=== PATIENT | female | born 1950 | race Caucasian/White ===

== ENCOUNTER 2019-04-25 21:11 | Inpatient (IN) ==
[2019-04-25] MEDS ORDERED: MORPHINE 4 MG/1 ML VIAL IM STA (21:44)
[2019-04-25] MEDS ORDERED: ORPHENADRINE 60 MG/2 ML VIAL IV STA (21:44)
[2019-04-25 23:05] LABS: Basophils # 0.1 10*3/uL (0.0-0.2); Basophils % 0.4 % (0.0-0.8); Eosinophils % 0.3 % (0.00-10.9); Hematocrit 37.9 VOL% (35.7-47.0); Immature Granulocytes % 0.6 %; Immature Granulocytes Absolute 0.08 #; Lymphocytes % 16.1 % (21.3-54.2); Mean Corpuscular HGB Conc 34.3 GM/DL (32-36); Mean Corpuscular Volume 97.2 FL (87-102); Monocytes % 4.3 % (1.7-12.7); Neutrophils % 78.3 % (38.7-73.9); Platelet Count 206 T/CUMM (130-400); Red Cell Distribution Width 12.6 % (9.3-17.3); White Blood Count 12.5 T/CUMM (4-12)
[2019-04-25 23:16] LABS: INR 0.9; Partial Thromboplastin Time 26.9 SECS (20.8-36.0)
[2019-04-25 23:25] LABS: Albumin 3.3 G/DL (3.4-5.0); Bilirubin,Total 0.4 MG/DL (0.2-1.0); Calcium 8.2 MG/DL (8.5-10.1); Osmolality,Calculated 270.1 MOS/KG (273-304); Total Protein 6.5 G/DL (6.4-8.3)
[2019-04-25] MEDS ORDERED: KETOROLAC 30 MG/1 ML VIAL IM STA (23:34)
[2019-04-26] MEDS ORDERED: HYDROmorphone 2 MG/1 ML VIAL IV PRN ×3 (03:48→10:29)
[2019-04-26] MEDS ORDERED: ACETAMINOPHEN 325 MG TABLET PO PRN (03:48)
[2019-04-26] MEDS ORDERED: NICOTINE 21 MG/24 HR PATCH TRANSDERM PRN (03:48)
[2019-04-26] MEDS: ONDANSETRON 4 MG/2 ML VIAL IV PRN (04:09)
[2019-04-26] MEDS: SODIUM CHLORIDE 0.9% 1,000 ML IV SCH ×2 (04:10→10:36)
[2019-04-26 05:08] LABS: Basophils % 0.3 % (0.0-0.8); Eosinophils % 0.2 % (0.00-10.9); Hematocrit 39.1 VOL% (35.7-47.0); Hemoglobin 13.3 GM/DL (12.0-16.0); Immature Granulocytes % 0.5 %; Immature Granulocytes Absolute 0.06 #; Lymphocytes # 1.4 10*3/uL (1.4-4.0); Lymphocytes % 11.4 % (21.3-54.2); Mean Corpuscular Volume 97.3 FL (87-102); Mean Platelet Volume 11.4 FL (9.6-12.0); Monocytes % 6.1 % (1.7-12.7); Neutrophils % 81.5 % (38.7-73.9); Platelet Count 208 T/CUMM (130-400); Red Blood Count 4.02 MC/CUMM (3.8-5.5); Red Cell Distribution Width 12.5 % (9.3-17.3); White Blood Count 12.2 T/CUMM (4-12)
[2019-04-26 05:48] LABS: Calcium 8.7 MG/DL (8.5-10.1); Osmolality,Calculated 272.1 MOS/KG (273-304)
[2019-04-26] MEDS: ENOXAPARIN 40 MG/0.4 ML SYRINGE SUBCUT SCH (07:51)
[2019-04-26] MEDS ORDERED: ceFAZolin 1,000 MG in SYRINGE 1 EACH IV ONE (08:30)
[2019-04-26] MEDS ORDERED: ALBUTEROL/IPRATROPIUM 3 ML NEB RESP TX ONE ×2 (10:07→10:17)
[2019-04-26] MEDS ORDERED: LACTULOSE 20 GM/30 ML UDCUP PO PRN (10:15)
[2019-04-26] MEDS ORDERED: MAGNESIUM HYDROXIDE SUSP 30 ML UDCUP PO PRN (10:15)
[2019-04-26] MEDS ORDERED: BUPIVACAINE 0.5% 50 ML VIAL ONE (10:15)
[2019-04-26] MEDS ORDERED: BISACODYL 10 MG SUPP RECTAL PRN (10:15)
[2019-04-26] MEDS ORDERED: fentaNYL 100 MCG/2 ML VIAL ONE (10:36)
[2019-04-26] MEDS ORDERED: SEVOFLURANE 1 UNIT/15 MINUTE INH ONE (10:36)
[2019-04-26] MEDS ORDERED: MIDAZOLAM 2 MG/2 ML VIAL ONE (10:36)
[2019-04-26] MEDS ORDERED: ePHEDrine 50 MG/ML AMP ONE (10:37)
[2019-04-26] MEDS ORDERED: DEXAMETHASONE 4 MG/1 ML VIAL ONE (10:37)
[2019-04-26] MEDS ORDERED: propofoL 200 MG/20 ML VIAL IV ONE (10:37)
[2019-04-26] MEDS ORDERED: KETOROLAC 30 MG/1 ML VIAL ONE (10:37)
[2019-04-26] MEDS ORDERED: LIDOCAINE 2% 5 ML VIAL ONE (10:37)
[2019-04-26] MEDS ORDERED: ONDANSETRON 4 MG/2 ML VIAL ONE (10:37)
[2019-04-26] MEDS ORDERED: PHENYLEPHRINE 10 MG/1 ML VIAL IV ONE (10:37)
[2019-04-26] MEDS ORDERED: ACETAMINOPHEN 1,000 MG/100 ML VIAL IV ONE (10:38)
[2019-04-26] MEDS: ceFAZolin 1,000 MG in SYRINGE 1 EACH IV SCH ×2 (15:48→23:13)
[2019-04-27 05:08] LABS: Basophils % 0.3 % (0.0-0.8); Eosinophils % 0.3 % (0.00-10.9); Hemoglobin 10.4 GM/DL (12.0-16.0); Immature Granulocytes % 0.4 %; Immature Granulocytes Absolute 0.05 #; Lymphocytes # 2.5 10*3/uL (1.4-4.0); Mean Corpuscular HGB Conc 33.5 GM/DL (32-36); Mean Corpuscular Volume 97.8 FL (87-102); Mean Platelet Volume 11.6 FL (9.6-12.0); Monocytes % 6.5 % (1.7-12.7); Neutrophils % 71.5 % (38.7-73.9); Platelet Count 150 T/CUMM (130-400); Red Blood Count 3.17 MC/CUMM (3.8-5.5); Red Cell Distribution Width 12.2 % (9.3-17.3)
[2019-04-27] MEDS: SODIUM CHLORIDE 0.9% 1,000 ML IV SCH ×2 (06:17→23:19)
[2019-04-27] MEDS: ceFAZolin 1,000 MG in SYRINGE 1 EACH IV SCH ×3 (08:48→23:21)
[2019-04-27] MEDS: ENOXAPARIN 40 MG/0.4 ML SYRINGE SUBCUT SCH (08:48)
[2019-04-28 06:25] LABS: Basophils % 0.4 % (0.0-0.8); Eosinophils # 0.1 10*3/uL (0.0-0.87); Eosinophils % 1.4 % (0.00-10.9); Hematocrit 31.5 VOL% (35.7-47.0); Hemoglobin 10.6 GM/DL (12.0-16.0); Immature Granulocytes % 0.6 %; Immature Granulocytes Absolute 0.06 #; Lymphocytes % 19.3 % (21.3-54.2); Mean Corpuscular HGB Conc 33.7 GM/DL (32-36); Mean Corpuscular Volume 98.1 FL (87-102); Mean Platelet Volume 11.9 FL (9.6-12.0); Monocytes % 6.9 % (1.7-12.7); Neutrophils % 71.4 % (38.7-73.9); Platelet Count 156 T/CUMM (130-400); Red Blood Count 3.21 MC/CUMM (3.8-5.5); Red Cell Distribution Width 12.5 % (9.3-17.3); White Blood Count 10.1 T/CUMM (4-12)
[2019-04-28] MEDS: ENOXAPARIN 40 MG/0.4 ML SYRINGE SUBCUT SCH (09:18)
[2019-04-28] MEDS: ceFAZolin 1,000 MG in SYRINGE 1 EACH IV SCH ×2 (09:18→19:17)
[2019-04-28] MEDS: SODIUM CHLORIDE 0.9% 1,000 ML IV SCH (16:40)
[2019-04-29] MEDS: ceFAZolin 1,000 MG in SYRINGE 1 EACH IV SCH ×2 (02:40→10:57)
[2019-04-29] MEDS: ENOXAPARIN 40 MG/0.4 ML SYRINGE SUBCUT SCH (08:17)
[2019-04-29] MEDS: ONDANSETRON 4 MG/2 ML VIAL IV PRN (10:40)
[2019-04-29 11:57] VITALS: BP 152/64
== END 2019-04-29 13:33 | disposition swing bed (61) | DRG 482 ==
LOC: EDUNIT# → EDBD → N.ED 21:11 → N.EDINP 04-26 02:44 → N.3E 04-26 04:02
PROVIDERS: ADMIT Emergency Medicine; ATTEND Emergency Medicine

== ENCOUNTER 2019-06-02 03:11 | Observation (INO) ==
[2019-06-02] MEDS ORDERED: ONDANSETRON 4 MG/2 ML VIAL IV STA (03:34)
[2019-06-02] MEDS ORDERED: SODIUM CHLORIDE 0.9% 1,000 ML IV STA (03:34)
[2019-06-02] MEDS ORDERED: PANTOPRAZOLE 40 MG VIAL IV STA (03:34)
[2019-06-02 04:26] LABS: Basophils # 0.1 10*3/uL (0.0-0.2); Basophils % 0.5 % (0.0-0.8); Eosinophils % 0.2 % (0.00-10.9); Hematocrit 37.9 VOL% (35.7-47.0); Hemoglobin 12.7 GM/DL (12.0-16.0); Immature Granulocytes % 0.5 %; Immature Granulocytes Absolute 0.05 #; Lymphocytes # 1.3 10*3/uL (1.4-4.0); Lymphocytes % 12.1 % (21.3-54.2); Mean Corpuscular HGB Conc 33.5 GM/DL (32-36); Mean Corpuscular Volume 96.4 FL (87-102); Mean Platelet Volume 10.5 FL (9.6-12.0); Monocytes % 5.6 % (1.7-12.7); Neutrophils % 81.1 % (38.7-73.9); Platelet Count 303 T/CUMM (130-400); Red Blood Count 3.93 MC/CUMM (3.8-5.5); Red Cell Distribution Width 12.3 % (9.3-17.3); White Blood Count 10.8 T/CUMM (4-12)
[2019-06-02 04:59] LABS: Albumin 3.8 G/DL (3.4-5.0); Bilirubin,Total 0.6 MG/DL (0.2-1.0); Calcium 9.5 MG/DL (8.5-10.1); Osmolality,Calculated 264.7 MOS/KG (273-304); Total Protein 7.2 G/DL (6.4-8.3)
[2019-06-02] MEDS ORDERED: ONDANSETRON 4 MG/2 ML VIAL IV PRN (06:36)
[2019-06-02] MEDS ORDERED: NITROGLYCERIN SL 0.4 MG TABLET SL PRN (06:36)
[2019-06-02] MEDS ORDERED: HYDROmorphone 2 MG/1 ML VIAL IV PRN ×3 (06:36→10:26)
[2019-06-02] MEDS: SODIUM CHLORIDE 0.9% 1,000 ML IV SCH ×2 (07:00→17:01)
[2019-06-02] MEDS: PANTOPRAZOLE 40 MG VIAL IV SCH (09:46)
[2019-06-02] MEDS: LISINOPRIL/HCTZ 20-25 MG TABLET PO SCH (09:46)
[2019-06-02] MEDS: ESCITALOPRAM 10 MG TABLET PO SCH (09:46)
[2019-06-02] MEDS ORDERED: cefOXitin 2,000 MG in SYRINGE 1 EACH IV ONE (10:00)
[2019-06-02] MEDS: ONDANSETRON 4 MG/2 ML VIAL IV PRN ×3 (12:33→21:12)
[2019-06-02 19:26] LABS: Apearance,Urine CLEAR (Clear); Bacteria,Urine Occasional /HPF (Few); Bilirubin,Urine Negative (Negative); Blood, Urine Small mg/dL (Negative); Glucose,Urine (UA) Negative (Negative); Ketones,Urine 5 mg/dL (Negative); Mucus,Urine Occasional /LPF (Occasional); Nitrite,Urine Negative (Negative); Protein,Urine Negative; RBC,Urine <1 /HPF (0-4); Squamous Epithelial Cell,Urine Occasional /HPF (0-10); Urine Color Yellow (Yellow); Urine Specific Gravity 1.028 (1.001-1.035); Urine Urobilinogen < 2.0 EU/DL (0.2-1.0); WBC,Urine <1 /HPF (0-6)
[2019-06-02] MEDS: ATORVASTATIN 40 MG TABLET PO SCH (21:12)
[2019-06-02] MEDS: GABAPENTIN 300 MG CAPSULE PO SCH (21:12)
[2019-06-03 06:13] LABS: Basophils # 0.1 10*3/uL (0.0-0.2); Basophils % 0.9 % (0.0-0.8); Eosinophils # 0.1 10*3/uL (0.0-0.87); Eosinophils % 1.3 % (0.00-10.9); Hematocrit 33.7 VOL% (35.7-47.0); Hemoglobin 11.4 GM/DL (12.0-16.0); Immature Granulocytes % 0.3 %; Immature Granulocytes Absolute 0.02 #; Lymphocytes # 1.8 10*3/uL (1.4-4.0); Mean Corpuscular HGB Conc 33.8 GM/DL (32-36); Mean Corpuscular Volume 95.2 FL (87-102); Mean Platelet Volume 10.9 FL (9.6-12.0); Monocytes % 6.6 % (1.7-12.7); Neutrophils % 67.9 % (38.7-73.9); Platelet Count 256 T/CUMM (130-400); Red Blood Count 3.54 MC/CUMM (3.8-5.5); Red Cell Distribution Width 12.5 % (9.3-17.3); White Blood Count 7.9 T/CUMM (4-12)
[2019-06-03] MEDS ORDERED: cefOXitin 2,000 MG in SYRINGE 1 EACH IV ONE (06:30)
[2019-06-03] MEDS ORDERED: TISSUE ADHESIVE 1 EACH APPLICATOR TOP ONE (06:47)
[2019-06-03] MEDS ORDERED: LIDOCAINE 1%/EPI INJ 20 ML VIAL ONE (06:48)
[2019-06-03] MEDS ORDERED: BUPIVACAINE MPF 0.25% 30 ML VIAL ONE (06:48)
[2019-06-03 06:52] LABS: Albumin 3.1 G/DL (3.4-5.0); Bilirubin,Total 1.1 MG/DL (0.2-1.0); Calcium 8.2 MG/DL (8.5-10.1)
[2019-06-03] MEDS ORDERED: fentaNYL 250 MCG/5 ML VIAL ONE (08:19)
[2019-06-03] MEDS ORDERED: SEVOFLURANE 1 UNIT/15 MINUTE INH ONE (08:19)
[2019-06-03] MEDS ORDERED: ONDANSETRON 4 MG/2 ML VIAL ONE ×2 (08:19→08:32)
[2019-06-03] MEDS ORDERED: propofoL 200 MG/20 ML VIAL IV ONE (08:19)
[2019-06-03] MEDS ORDERED: LIDOCAINE 2% 5 ML VIAL ONE (08:19)
[2019-06-03] MEDS ORDERED: MIDAZOLAM 2 MG/2 ML VIAL ONE (08:19)
[2019-06-03] MEDS ORDERED: PHENYLEPHRINE 1 MG/10 ML SYRINGE IV ONE (08:20)
[2019-06-03] MEDS ORDERED: ROCURONIUM 100 MG/10 ML VIAL IV ONE (08:20)
[2019-06-03] MEDS ORDERED: SUCCINYLCHOLINE 200 MG/10 ML VIAL ONE (08:20)
[2019-06-03] MEDS ORDERED: LACTATED RINGERS 1,000 ML IV ONE (08:20)
[2019-06-03] MEDS ORDERED: HYDROmorphone 2 MG/1 ML VIAL IV PRN (08:30)
[2019-06-03] MEDS ORDERED: ONDANSETRON 4 MG/2 ML VIAL IV PRN (08:30)
[2019-06-03] MEDS ORDERED: KETOROLAC 15 MG/1 ML VIAL IV PRN (09:16)
[2019-06-03] MEDS: SODIUM CHLORIDE 0.9% 1,000 ML IV SCH ×3 (09:24→23:37)
[2019-06-03] MEDS: LISINOPRIL/HCTZ 20-25 MG TABLET PO SCH (09:54)
[2019-06-03] MEDS: PANTOPRAZOLE 40 MG VIAL IV SCH (09:54)
[2019-06-03] MEDS: POTASSIUM CHLORIDE 20 MEQ TABLET PO PRN ×4 (09:54→17:16)
[2019-06-03] MEDS: ESCITALOPRAM 10 MG TABLET PO SCH (12:39)
[2019-06-03] MEDS: cefOXitin 2,000 MG in SYRINGE 1 EACH IV SCH ×2 (12:39→20:17)
[2019-06-03] MEDS: ONDANSETRON 4 MG/2 ML VIAL IV PRN (13:26)
[2019-06-03] MEDS: GABAPENTIN 300 MG CAPSULE PO SCH (20:16)
[2019-06-03] MEDS: ATORVASTATIN 40 MG TABLET PO SCH (20:16)
[2019-06-04] MEDS: cefOXitin 2,000 MG in SYRINGE 1 EACH IV SCH (02:13)
[2019-06-04 05:33] LABS: Basophils # 0.1 10*3/uL (0.0-0.2); Basophils % 0.8 % (0.0-0.8); Eosinophils # 0.2 10*3/uL (0.0-0.87); Eosinophils % 1.9 % (0.00-10.9); Hematocrit 31.9 VOL% (35.7-47.0); Hemoglobin 10.5 GM/DL (12.0-16.0); Immature Granulocytes % 0.3 %; Immature Granulocytes Absolute 0.02 #; Lymphocytes % 26.2 % (21.3-54.2); Mean Corpuscular HGB Conc 32.9 GM/DL (32-36); Mean Corpuscular Volume 98.5 FL (87-102); Mean Platelet Volume 11.1 FL (9.6-12.0); Monocytes % 6.6 % (1.7-12.7); Neutrophils % 64.2 % (38.7-73.9); Platelet Count 213 T/CUMM (130-400); Red Blood Count 3.24 MC/CUMM (3.8-5.5); Red Cell Distribution Width 12.4 % (9.3-17.3); White Blood Count 7.7 T/CUMM (4-12)
[2019-06-04 05:51] LABS: Albumin 2.6 G/DL (3.4-5.0); Bilirubin,Total 0.8 MG/DL (0.2-1.0); Total Protein 5.4 G/DL (6.4-8.3)
[2019-06-04] MEDS: SODIUM CHLORIDE 0.9% 1,000 ML IV SCH (07:09)
[2019-06-04] MEDS: POTASSIUM CHLORIDE 20 MEQ TABLET PO PRN (07:09)
[2019-06-04] MEDS: ESCITALOPRAM 10 MG TABLET PO SCH (10:27)
[2019-06-04] MEDS: LISINOPRIL/HCTZ 20-25 MG TABLET PO SCH (10:27)
[2019-06-04] MEDS: PANTOPRAZOLE 40 MG VIAL IV SCH (10:28)
[2019-06-04 11:22] VITALS: BP 142/67
[2019-06-06] MEDS ORDERED: NF- (Alendronate [Fosamax] 70 MG) PO SCH (05:39)
== END 2019-06-04 15:40 | disposition home or self-care (01) ==
LOC: N.EDINP 03:11 → N.ED 03:11 → N.3E 06:04
PROVIDERS: ADMIT Surgery; ATTEND Surgery
PROC: LAPCHOL (2019-06-03 07:00)